=== PATIENT | female | born 1990 ===

== ENCOUNTER → 2018-04-06 | Outpatient (CLI) | payer OTHER ==
[~2018-04-06] MED LIST: IOPAMIDOL (ISOVUE 370) 100 ML BTL IV ONE
== END ==
LOC: FIMAGING 12:35
PROVIDERS: ATTEND Obstetrics & Gynecology
PROC: 0UJ87ZZ Inspection of Fallopian Tube, Via Natural or Artificial Opening (ICD-10-PCS; principal; 2018-04-06)
DX: N97.9 Female infertility, unspecified (principal)
CPT/HCPCS: Q9967